=== PATIENT | female | born 1955 | race Caucasian/White ===

== ENCOUNTER 2023-03-23 15:55 | Emergency (ER) | payer MEDICARE, SELFPAY ==
[2023-03-23 16:04] VITALS: BP 164/92; PULSE 84; RESP 16; TEMP 37.2; O2SAT 97
[2023-03-23 16:08] VITALS: BP 164/92; PULSE 84; RESP 16; TEMP 37.2; O2SAT 97
--- NOTE | 2023-03-23 16:12 | ED.URI ---
HPI - URI/Sore Throat General Chief Complaint: Upper Respiratory Infection Stated Complaint: COUGH/CONGESTION Time Seen by Provider: 03/23/23 16:12 Source: patient and RN notes reviewed Mode of arrival: ambulatory Limitations: no limitations History of Present Illness HPI Narrative: 67-year-old female presented for complaint of sinus congestion, headache, and cough for almost 2 weeks. Endorses a sore throat and onset which has resolved. She denies chest pain, shortness of breath, wheezing, nausea, vomiting, fevers or chills. She is taking Mucinex and Sudafed for symptoms. MD elicited complaint: cough Related Data Home Medications Medication Instructions Recorded Confirmed atenolol 50 mg tablet 50 mg PO DAILY 03/23/23 03/23/23 mometasone 50 mcg/actuation nasal 100 mcg intranasal DAILY 03/23/23 03/23/23 spray telmisartan 20 mg tablet 20 mg PO DAILY 03/23/23 03/23/23 Allergies Allergy/AdvReac Type Severity Reaction Status Date / Time aspirin Allergy Hives Verified 03/23/23 16:06 azithromycin Allergy Swelling Verified 03/23/23 16:06 [From Zithromax Z-Reji] nitrofurantoin Allergy Hives Verified 03/23/23 16:06 [From Macrobid] Review of Systems Review of Systems: CONSTITUTIONAL: Denies malaise, chills, sweats, fever EYES: Denies visual changes, redness, or discharge ENT: Reports rhinorrhea, congestion, sinus pain, denies otalgia, sore throat CARDIOVASCULAR: Denies chest pain, palpitations, edema RESPIRATORY: Reports cough, post nasal drainage. Denies dyspnea GASTROINTESTINAL: Denies abdominal pain, nausea, vomiting, diarrhea SKIN: Denies rash or itching MUSCULOSKELETAL: Denies myalgia NEUROLOGIC: Reports headache PMFSH Past Medical History Medical History (Updated 03/23/23 @ 16:29 by Allie Espinoza APRN) Hypertension Exam Narrative: GENERAL: Mildly ill-appearing, nontoxic no acute distress. HEAD: Normocephalic EYES: PERRLA, conjunctivae clear ENT: Mucous membranes moist. TM pearly catherine with dull light reflex bilaterally; no tragal tenderness. Oropharynx not erythematous without lesions or exudate, no drooling, no hoarseness, no trismus, uvula midline. No tripod positioning, muffled voice, soft palate or pharyngeal wall bulging NECK: Supple. No lymphadenopathy CHEST: Clear to auscultation, breath sounds equal. No wheezing, rhonchi, rales, or stridor. No respiratory distress, speaks in full sentences. HEART: Regular rate and rhythm. No murmur heard. SKIN: Warm, dry, no rash. NEURO: Alert and oriented x3. PSYCH: Normal mood and affect Course Course Emergency Course: Patient is aware of diagnosis, understands and agrees to treatment plan. Anticipatory guidance given. Patient agrees to follow-up as directed and is aware of reasons to seek care at the emergency department. Portions of this record may have been created with voice recognition software Level of Care: Express Care Visit Vital Signs Vital signs: Vital Signs Temperature 98.9 F 03/23/23 16:04 Pulse Rate 84 03/23/23 16:04 Respiratory Rate 16 03/23/23 16:04 Blood Pressure 164/92 H 03/23/23 16:04 Pulse Oximetry 97 03/23/23 16:04 Temperature 98.9 F 03/23/23 16:08 Pulse Rate 84 03/23/23 16:08 Respiratory Rate 16 03/23/23 16:08 Blood Pressure 164/92 H 03/23/23 16:08 Pulse Oximetry 97 03/23/23 16:08 reviewed MDM - URI/Sore Throat MDM Narrative Medical decision making narrative: Discussed physical exam findings. Elevated BP, patient has been taking Sudafed. Advised supportive measures and signs/symptoms to go to the ER. Pt is appropriate for outpt treatment and f/u. Differential Diagnosis Differential diagnosis: Likely upper respiratory infection, otitis media, sinusitis, viral infection and bronchitis Discharge Plan Discharge Clinical Impression: Bronchitis Patient Disposition: Home, Self-Care Condition: Stable Instructions: Antibiotic Form, Acute Bronchitis
== END 2023-03-23 16:25 | disposition home or self-care (01) ==
PROVIDERS: Emergency Provider Nurse Practitioner Family
DX: J40 Bronchitis, not specified as acute or chronic (principal); I10 Essential (primary) hypertension
CPT/HCPCS: 99213; G0463